=== PATIENT | male | born 1970 | race Caucasian/White ===

== ENCOUNTER 2017-08-30 21:56 | Emergency (ER) | payer OTHER ==
[~2017-08-30] VITALS: Ht 193 cm; Wt 116.1 kg
[2017-08-30 22:06] VITALS: Ht 193 cm; Wt 116.1 kg
[2017-08-31] VITALS: BP 121/81
== END 2017-08-31 | disposition home or self-care (01) ==
LOC: ED 21:56
DX: S06.0X0A Concussion without loss of consciousness, initial encounter (principal); S00.01XA Abrasion of scalp, initial encounter; S40.212A Abrasion of left shoulder, initial encounter; S60.512A Abrasion of left hand, initial encounter; S60.511A Abrasion of right hand, initial encounter; S30.810A Abrasion of lower back and pelvis, initial encounter; Z88.8 Allergy status to other drugs, medicaments and biological substances; Z88.6 Allergy status to analgesic agent; W22.8XXA Striking against or struck by other objects, initial encounter; Y93.I9 Activity, other involving external motion; Y92.89 Other specified places as the place of occurrence of the external cause; Y99.8 Other external cause status

== ENCOUNTER 2019-11-07 17:59 | Emergency (ER) | payer BC ==
[~2019-11-07] VITALS: Ht 193 cm; Wt 117.0 kg
[2019-11-07 18:06] VITALS: BP 159/105; Ht 193 cm; Wt 117.0 kg
== END 2019-11-07 20:37 | disposition home or self-care (01) ==
LOC: ED 17:59
DX: S60.352A Superficial foreign body of left thumb, initial encounter (principal); K21.9 Gastro-esophageal reflux disease without esophagitis; Z88.6 Allergy status to analgesic agent; W45.8XXA Other foreign body or object entering through skin, initial encounter; Y93.89 Activity, other specified; Y92.89 Other specified places as the place of occurrence of the external cause; Y99.8 Other external cause status
CPT/HCPCS: 90715; J2001